=== PATIENT | female | born 1990 | race African-American/Black ===

== ENCOUNTER 2016-06-29 12:39 | Emergency (ER) | payer OTHER, BC ==
[~2016-06-29] VITALS: Ht 152.4 cm; Wt 53.5 kg
[2016-06-29 12:42] VITALS: BP 128/77; PULSE 84; RESP 20; TEMP 97.9; O2SAT 95
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
[2016-06-29] MEDS ORDERED: ROBA750T PO (15:07)
[2016-06-29] MEDS ORDERED: DICL50TA PO (15:07)
== END 2016-06-29 15:16 | disposition home or self-care (01) ==
LOC: NEPB 12:39
DX: S16.1XXA Strain of muscle, fascia and tendon at neck level, initial encounter (principal); V49.49XA Driver injured in collision with other motor vehicles in traffic accident, initial encounter; Y92.410 Unspecified street and highway as the place of occurrence of the external cause
CPT/HCPCS: 72100; 72125